=== PATIENT | male | born 1950 | race Caucasian/White ===

== ENCOUNTER 2017-09-06 22:24 | Emergency (ER) | payer OTHER ==
[~2017-09-06] VITALS: Ht 177.8 cm; Wt 98.7 kg
[2017-09-06 22:26] VITALS: TEMP 36.4; Ht 177.8 cm; Wt 98.7 kg
[2017-09-06 22:34] VITALS: O2SAT 98
[2017-09-06] MEDS ORDERED: SODIUM CHLORIDE 0.9% 1000ML 1,000 ML IV STA ×2 (22:48→23:26)
[2017-09-06] MEDS ORDERED: LORAZEPAM 1 MG TAB SL STA (22:48)
[2017-09-06 22:56] LABS: BASO % 0.6 %; BASO ABS # 0.05 K/uL (0-0.2); COMPLETE YES; EOS % 0.6 %; HEMATOCRIT 41.7 % (42-52); IG% 0.2 %; LYMPH % 19.3 %; LYMPH ABS # 1.61 K/uL (1.2-3.4); MEAN CELL VOLUME 85.8 fL (80-100); MEAN CORPUSCULAR HEMOGLOBIN 29.4 pg (25-34); MEAN CORPUSCULAR HGB CONC 34.3 g/dl (32-36); MEAN PLATELET VOLUME 9.4 fL (7.4-10.4); MONO % 6.5 %; NEUT % 72.8 %; PLATELET COUNT 183 K/uL (130-400); RED BLOOD COUNT 4.86 M/uL (4.7-6.1); WHITE BLOOD COUNT 8.33 K/uL (4.8-10.8)
[2017-09-06 23:08] LABS: PROTHROMBIN TIME (PATIENT) 10.3 SECONDS (9.0-12.0)
[2017-09-06] MEDS ORDERED: LISI-729 PO (23:09)
[2017-09-06 23:20] LABS: ALT/SGPT 30 U/L (12-78); BLOOD UREA NITROGEN 22 mg/dl (7-18); BUN/CREATININE RATIO 18.6 (10-20); CALCIUM 8.5 mg/dl (8.5-10.1); CARBON DIOXIDE 23 mmol/L (21-32); CHLORIDE 104 mmol/L (98-107); CREATININE 1.19 mg/dl (0.60-1.40); GLUCOSE 145 mg/dl (70-99); SODIUM 136 mmol/L (136-145)
[2017-09-06 23:25] LABS: ALKALINE PHOSPHATASE 96 U/L (45-117); AST/SGOT 20 U/L (15-37)
[2017-09-06] MEDS ORDERED: LORAZEPAM 1 MG TAB PO STA (23:26)
[2017-09-06] MEDS ORDERED: GI COCKTAIL PO STA (23:35)
[2017-09-06] MEDS ORDERED: ONDANSETRON 4MG OD TAB PO STA (23:35)
[2017-09-06] MEDS ORDERED: LIDOCAINE HCL 2% VISC SOLN 20 ML UDC ONE (23:49)
[2017-09-06] MEDS ORDERED: ALUMINUM/MAGNESIUM SUSP 30 ML UDC ONE (23:49)
--- NOTE | 2017-09-07 00:40 | EMERGENCY ROOM VISIT NOTE ---
History Report prepared by Ariane: Mony Saleh Under the Supervision of: Dr. Gregg Gross M.D. First contact with patient: 22:31 Chief Complaint: ILLNESS Stated Complaint: ILLNESS History of Present Illness The patient is a 67 year old white male with a past medical history of Hypertension who presents to the ED with a cc of sudden illness beginning 4 hours ago. He states that he doesn't feel himself and has had quite a few drinks over the past two days. He denies normally drinking like this. He denies thinking he has been drinking enough water. He states that he felt like his "nerves were coming out of his skin" so he took and extra of his blood pressure medication to try to help it. Positive lightheadedness, dizziness, shortness of breath, weakness, and feeling panicky. He notes that he has had anxiety in the past, but never this bad. Negative history for blood clots. Source of History: patient Onset: 4 hours ago Position: other (global) Quality: other ("nerves are coming out of my skin") Timing: other (sudden) Associated Symptoms: + SOB, + weakness Note: The patient complains of lightheadedness, dizziness, and feeling panicky. Review of Systems See HPI for pertinent positives and negatives. A total of ten systems were reviewed and were otherwise negative. Past Medical & Surgical Medical Problems: (1) HTN (hypertension) Family History Patient reports no known family medical history. Social History Smoking Status: Current Some Day Smoker Smokeless Tobacco Use: Yes Alcohol Use: occasionally Occupation Status: employed Current/Historical Medications Scheduled Lisinopril (Zestril), 5 MG PO DAILY Allergies Coded Allergies: Penicillins (Verified Allergy, Severe, GI SYMPTOMS, 09/06/17) Physical Exam Vital Signs Date Time Temp Pulse Resp B/P (MAP) Pulse Ox O2 Delivery O2 Flow Rate FiO2 09/07/17 00:05 106 16 173/85 98 Room Air 09/06/17 23:00 117 16 191/76 98 Room Air 09/06/17 22:39 123 09/06/17 22:34 98 Room Air 09/06/17 22:26 36.4 126 18 169/81 97 Room Air Physical Exam GENERAL: Awake, alert, anxious-appearing, NAD HENT: Normocephalic, atraumatic. EYES: Normal conjunctiva. Sclera non-icteric. NECK: Supple. No nuchal rigidity. FROM. RESPIRATORY: CTAB, no rhonchi, wheezing, crackles CARDIAC: Tachycardic rate and regular rhythm, no MRG ABDOMEN: Soft, NTND, BS+ MSK: No chest wall TTP, no LE edema. Calves have negative Koenig sign. No calf pain. NEURO: GCS 15, CN 2-12 intact, moves all 4s on command SKIN: No rash or jaundice noted. Medical Decision & Procedures ER Provider Diagnostic Interpretation: CHEST X-RAY: The results were interpreted by me. Trachea is midline. Normal heart borders. No cardiomegaly. No evidence of pneumothorax or pleural effusion. Costophrenic angles are well demarcated. No air under the diaphragm. Bony structures appear intact. Laboratory Results 09/06/17 22:38 Red Blood Count 4.86, Mean Corpuscular Volume 85.8, Mean Corpuscular Hemoglobin 29.4, Mean Corpuscular Hemoglobin Concent 34.3, Mean Platelet Volume 9.4, Neutrophils (%) (Auto) 72.8, Lymphocytes (%) (Auto) 19.3, Monocytes (%) (Auto) 6.5, Eosinophils (%) (Auto) 0.6, Basophils (%) (Auto) 0.6, Neutrophils # (Auto) 6.06, Lymphocytes # (Auto) 1.61, Monocytes # (Auto) 0.54, Eosinophils # (Auto) 0.05, Basophils # (Auto) 0.05 09/06/17 22:38 Test 09/06/17 22:38 White Blood Count 8.33 K/uL (4.8-10.8) Red Blood Count 4.86 M/uL (4.7-6.1) Hemoglobin 14.3 g/dL (14.0-18.0) Hematocrit 41.7 % (42-52) Mean Corpuscular Volume 85.8 fL (80-100) Mean Corpuscular Hemoglobin 29.4 pg (25-34) Mean Corpuscular Hemoglobin Concent 34.3 g/dl (32-36) Platelet Count 183 K/uL (130-400) Mean Platelet Volume 9.4 fL (7.4-10.4) Neutrophils (%) (Auto) 72.8 % Lymphocytes (%) (Auto) 19.3 % Monocytes (%) (Auto) 6.5 % Eosinophils (%) (Auto) 0.6 % Basophils (%) (Auto) 0.6 % Neutrophils # (Auto) 6.06 K/uL (1.4-6.5) Lymphocytes # (Auto) 1.61 K/uL (1.2-3.4) Monocytes # (Auto) 0.54 K/uL (0.11-0.59) Eosinophils # (Auto) 0.05 K/uL (0-0.5) Basophils # (Auto) 0.05 K/uL (0-0.2) RDW Standard Deviation 41.9 fL (36.4-46.3) RDW Coefficient of Variation 13.4 % (11.5-14.5) Immature Granulocyte % (Auto) 0.2 % Immature Granulocyte # (Auto) 0.02 K/uL (0.00-0.02) Prothrombin Time 10.3 SECONDS (9.0-12.0) Prothromb Time International Ratio 1.0 (0.9-1.1) Activated Partial Thromboplast Time 26.1 SECONDS (21.0-31.0) Partial Thromboplastin Ratio 1.0 Anion Gap 9.0 mmol/L (3-11) Est Creatinine Clear Calc Drug Dose 71.0 ml/min Estimated GFR () 72.8 Estimated GFR (Non- 62.8 BUN/Creatinine Ratio 18.6 (10-20) Calcium Level 8.5 mg/dl (8.5-10.1) Total Bilirubin 0.3 mg/dl (0.2-1) Direct Bilirubin 0.1 mg/dl (0-0.2) Aspartate Amino Transf (AST/SGOT) 20 U/L (15-37) Alanine Aminotransferase (ALT/SGPT) 30 U/L (12-78) Alkaline Phosphatase 96 U/L (45-117) Troponin I < 0.015 ng/ml (0-0.045) Pro-B-Type Natriuretic Peptide 36 pg/ml (0-900) Total Protein 7.1 gm/dl (6.4-8.2) Albumin 3.8 gm/dl (3.4-5.0) Lipase 179 U/L (73-393) Laboratory results reviewed by me Medications Administered Medications (Trade) Dose Ordered Sig/Anupam Route Start Time Stop Time Status Last Admin Dose Admin Lorazepam (Ativan Tab) 1 mg NOW STAT SL 09/06/17 22:48 09/06/17 22:50 DC 09/06/17 22:57 1 MG Sodium Chloride 1,000 ml @ 999 mls/hr Q1H1M STAT IV 09/06/17 22:48 09/06/17 23:48 DC 09/06/17 22:57 999 MLS/HR Sodium Chloride 1,000 ml @ 999 mls/hr Q1H1M STAT IV 09/06/17 23:26 09/07/17 00:26 DC 09/06/17 23:34 999 MLS/HR Lorazepam (Ativan Tab) 1 mg NOW STAT PO 09/06/17 23:26 09/06/17 23:27 DC 09/06/17 23:34 1 MG Ondansetron HCl (Zofran Odt) 4 mg NOW STAT PO 09/06/17 23:35 09/06/17 23:36 DC 09/06/17 23:52 4 MG Miscellaneous Medication (Gi Cocktail) 24 ml ONE STAT PO 09/06/17 23:35 09/06/17 23:36 DC 09/06/17 23:52 24 ML Al Hydroxide/Mg Hydroxide (Maalox Susp) 30 ml STK-MED ONCE .ROUTE 09/06/17 23:49 09/06/17 23:50 DC 09/06/17 23:52 30 ML Lidocaine HCl (Viscous Lidocaine 2% Soln) 20 ml STK-MED ONCE .ROUTE 09/06/17 23:49 09/06/17 23:50 DC 09/06/17 23:51 20 ML ECG Indication: weakness Rate (beats per minute): 125 Rhythm: sinus tachycardia Findings: Q waves (Inferior in V3), left axis deviation, other (Normal intervals, no other STS or TWI) ED Course 2238: The patient was evaluated in room A2. A complete history and physical exam was performed. 0016: I reevaluated the patient. The patient is going to finish his fluids and we discussed that this was most likely from dehydration. Discussed results and discharge instructions: He verbalized understanding and agreement. The patient is ready for discharge. Medical Decision The patient is a 67 year old white male with a past medical history of Hypertension who presents to the ED with a cc of sudden illness beginning 4 hours ago. Etiologies such as benign positional vertigo, dehydration, hypovolemia, anemia, tumor, infection, hypoglycemia, electrolyte abnormalities, cardiac sources, intracerebral event, toxicologic, neurologic, as well as others were entertained. Patient was seen and evaluated the bedside. Patient does have a history of hypertension and was recently in the area from [place] for the opening of hunting season. Patient stated that he had had a couple of drinks today and had a Suleiman Segar. Patient states that yesterday he drank a sixpack of beer. Patient states that he usually does not drink this much but did this time as he is with friends for the opening of hunting season. Patient did complain of some dizziness. Upon asking him about his shortness of breath he stated this wasn't some shortness of breath as it was just feeling lightheaded. Patient denies any chest pain. Patient has no prior history of heart or lung disease. Patient is not a chronic smoker but he does occasionally smoke. Patient denies any chest pains. Patient did recently travel from [facility] which is approximately 3 hours here by car. Patient denies any lower extremity swelling, prior history of DVT or PE, any plane travel, any calf pain. Furthermore, the patient states that he has become more worried as he states he just didn't feel right. Patient did have blood work that was completed, EKG, troponin, BNP, chest x-ray. Chest x-ray was interpreted by myself and was grossly normal. Patient no focal consolidation, pleural effusion or pneumothorax. Patient had no air under the diaphragm. Patient's EKG did show sinus tachycardia with some left axis deviation but no other STS are TWI. Patient's troponin was negative. BNP was normal. Given this information less likely to be acute coronary syndrome or acute heart failure. Patient did receive IV fluids as well as some Ativan given his anxious symptoms. Patient's white blood cell count was normal. Patient had mildly elevated nightly. Upon reassessment of the patient the patient's heart rate was improving from the 120s and low 100s. Given this I mention this more likely related to dehydration and a combination of anxiety and/or the use of alcohol and tobacco. Patient was told to follow-up with his PCP. Patient was feeling improved. Patient was able tolerate by mouth. Patient was deemed suitable for outpatient follow-up and treatment. Patient was amenable to this plan of care. Patient was given strict follow-up, discharge, and return precautions. All questions were answered. Patient was deemed suitable for outpatient follow-up at this time. Patient agreed with the plan of care and was safely discharged home. Medication Reconcilliation Current Medication List: was personally reviewed by me Blood Pressure Screening Patient's blood pressure: Elevated blood pressure Blood pressure disposition: Referred to PCP Impression Primary Impression: Dehydration Additional Impressions: Substance abuse Anxiety Encounter for smoking cessation counseling Scribe Attestation The scribe's documentation has been prepared under my direction and personally reviewed by me in its entirety. I confirm that the note above accurately reflects all work, treatment, procedures, and medical decision making performed by me. Departure Information Dispostion Home / Self-Care Referrals No Doctor, Assigned (PCP) Forms HOME CARE DOCUMENTATION FORM, IMPORTANT VISIT INFORMATION, WORK / SCHOOL INSTRUCTIONS Patient Instructions Dehydration, ED Smoking Cessation, My [facility] Additional Instructions Please return to the emergency department if you have worsening or recurrent symptoms not amenable to at-home treatment. Please call for a follow-up appointment with her primary care physician. Please take your medications as prescribed. If you have other concerns and/or complaints please feel free to also call your primary care physician's office or return the ED for further evaluation, management, and treatment. Please consider abstinence to alcohol and tobacco. Also continue liberal fluids and avoid caffeinated beverages. Please follow-up with her primary care physician. Take your medications as prescribed. If you were seen between 11pm and 7AM all radiology reads will be re-read by our in house staff. If any major discrepancies are discovered, you will be notified. You have been examined and treated today on an emergency basis only. This is not a substitute for, or an effort to provide, complete comprehensive medical care. It is impossible to recognize and treat all injuries or illnesses in a single emergency department visit. It is therefore important that you follow up closely with [facility], your PCP, and/or your specialist(s). Call as soon as possible for an appointment. Thank you for your time and consideration. I look forward to speaking with you again soon. Please don't hesitate to call us if you have any questions. Problem Qualifiers
[2017-09-07 00:50] VITALS: BP 173/87; PULSE 103; O2SAT 98
--- NOTE | 2017-09-07 07:20 | DIAGNOSTIC IMAGING REPORT ---
CHEST ONE VIEW PORTABLE HISTORY: Atypical CHEST PAIN COMPARISON: None. FINDINGS: Low lung volumes. The lungs are clear. Cardiac silhouette is normal in size. No pleural effusions. No pneumothorax. IMPRESSION: No acute process. Electronically signed by: Larry Germain M.D. 09/07/2017 7:19 AM Dictated Date/Time: 09/07/2017 7:18 AM
== END 2017-09-07 00:51 | disposition home or self-care (01) ==
LOC: C.EDB 22:25 → C.EDA 09-07 00:51
DX: E86.0 Dehydration (principal); F19.10 Other psychoactive substance abuse, uncomplicated; F41.9 Anxiety disorder, unspecified; Z71.6 Tobacco abuse counseling; I10 Essential (primary) hypertension; F17.200 Nicotine dependence, unspecified, uncomplicated; Z79.899 Other long term (current) drug therapy